=== PATIENT | male | born 1970 | race Caucasian/White ===

== ENCOUNTER 2020-03-26 09:05 | Emergency (ER) | payer SELFPAY ==
[2020-03-26] MEDS ORDERED: Ibuprofen 800 MG TAB ONE (09:35)
== END 2020-03-26 09:58 | disposition home or self-care (01) ==
LOC: ERS 09:05
DX: K04.7 Periapical abscess without sinus (principal); F17.210 Nicotine dependence, cigarettes, uncomplicated
CPT/HCPCS: 99283

== ENCOUNTER 2020-10-21 16:36 | Inpatient (IN) | payer SELFPAY ==
[2020-10-21] MEDS ORDERED: Morphine 4 MG/ML VIAL ONE (18:41)
[2020-10-21] MEDS ORDERED: Ondansetron PF 4 MG/2 ML Vial ONE ×2 (18:41→21:13)
[2020-10-21 19:07] LABS: #Basophils 0.1 thou/uL (0.0-0.2); #Eosinphils 0.3 thou/uL (0.0-0.7); #Lymphocytes 1.9 thou/uL (1.20-3.40); #Monocytes 0.8 thou/uL (0.11-0.59); #Neutrophils 10.1 thou/uL (1.40-6.50); %Basophils 0.7 % (0.0-1.0); %Eosinophils 2.1 % (0.0-10.0); %Lymphocytes 14.5 % (21.0-51.0); %Monocytes 6.2 % (0.0-10.0); %Neutrophils 76.6 % (42.0-75.0); Mean Corpuscular Hemoglobin 32.9 pg (27.0-31.0); Mean Platelet Volume 7.5 fL (7.4-10.4); Platelet Count 241 thou/uL (130-400); RBC Distribution Width 12.9 % (11.5-14.5); Red Blood Cell (RBC) Count 4.56 mill/uL (4.70-6.10); White Blood Cell (WBC) Count 13.2 thou/uL (4.8-10.8)
[2020-10-21 19:30] LABS: ALT (SGPT) 22 U/L (8-55); AST (SGOT) 19 U/L (5-34); Albumin 4.6 g/dL (3.5-5.0); Alkaline Phosphatase 91 U/L (40-110); Anion Gap 13 mmol/L (10-20); BUN (Urea Nitrogen) 14 mg/dL (8.4-25.7); Bilirubin, Total 0.3 mg/dL (0.2-1.2); Calc. Creatinine Clearance 0 mL/min (70-130); Calcium 9.3 mg/dL (7.8-10.44); Carbon Dioxide 27 mmol/L (22-29); Chloride 101 mmol/L (98-107); Globulin 3.3 g/dL (2.4-3.5); Glucose 99 mg/dL (70-105); Potassium 4.5 mmol/L (3.5-5.1); Protein, Total 7.9 g/dL (6.0-8.3); Sodium 136 mmol/L (136-145)
[2020-10-21] MEDS ORDERED: VANCOMYCIN 1.25 GM/250 ML BAG 1.25 GM in Premix Bag 1 BAG IVPB SCH (20:15)
[2020-10-21] MEDS ORDERED: Neomycin-Polymyxin 1 ML AMP ONE (20:28)
[2020-10-21] MEDS ORDERED: Bupivacaine PF 0.5% 30 ML VIAL ONE (20:28)
[2020-10-21] MEDS ORDERED: Bacitracin Zinc Ointment 30 gm TUBE ONE (20:28)
[2020-10-21] MEDS ORDERED: Bisacodyl 10 MG SUPP PR PRN (20:38)
[2020-10-21] MEDS ORDERED: Milk Of Magnesia 30 ML UDCUP PO PRN (20:38)
[2020-10-21] MEDS ORDERED: Morphine 4 MG/ML VIAL SLOW IVP PRN (20:38)
[2020-10-21] MEDS ORDERED: Ketorolac Tromethamine 30 MG/ML VIAL IVP PRN (20:43)
[2020-10-21] MEDS ORDERED: Midazolam HCl 2 mg/2 ml Vial ONE (20:43)
[2020-10-21] MEDS ORDERED: Fentanyl 100 MCG/2 ML VIAL ONE (20:43)
[2020-10-21] MEDS ORDERED: Meperidine HCl/PF 25 MG/ML VIAL IM PRN (20:43)
[2020-10-21] MEDS ORDERED: Communication Order-Pharmacy FS PRN (20:45)
[2020-10-21] MEDS ORDERED: TETANUS AND DIPHTHERIA TOX/PF 0.5 ML DISP.SYRIN IM SCH (20:45)
[2020-10-21] MEDS ORDERED: PROPOFOL 200 MG/20 ML VIAL ONE (21:13)
[2020-10-21] MEDS ORDERED: Lidocaine 1% PF 5 ML VIAL ONE (21:13)
[2020-10-21] MEDS ORDERED: Dexamethasone 20 MG/5 ML VIAL ONE (21:13)
[2020-10-21] MEDS ORDERED: Ketorolac Tromethamine 30 MG/ML VIAL ONE (22:48)
[2020-10-21] MEDS ORDERED: Ondansetron HCl/PF 4 MG/2 ML Vial IVP PRN (22:57)
[2020-10-21] MEDS ORDERED: Promethazine HCl 25 MG/ML VIAL IVPB PRN (22:57)
[2020-10-21] MEDS ORDERED: Promethazine HCl 25 MG/ML VIAL IM PRN (22:57)
[2020-10-21] MEDS: Sodium Chloride 0.9% 100 ML IV SCH (23:40)
[2020-10-22] MEDS: Sodium Chloride 0.9% 100 ML IV SCH ×5 (00:44→02:55)
[2020-10-22] MEDS: Aspirin 81 mg Enteric Coated Tablet PO SCH ×3 (00:45→22:19)
[2020-10-22 01:00] VITALS: BMI 25.4
[2020-10-22] MEDS: Sodium Chloride 0.9% 1,000 ML IV SCH ×2 (03:07→14:01)
[2020-10-22 06:04] LABS: #Monocytes 0.2 thou/uL (0.11-0.59); #Neutrophils 9.9 thou/uL (1.40-6.50); %Basophils 0.2 % (0.0-1.0); %Eosinophils 0.1 % (0.0-10.0); %Monocytes 2.1 % (0.0-10.0); %Neutrophils 88.6 % (42.0-75.0); Hemoglobin 13.1 g/dL (14.0-18.0); Mean Corpuscular HGB CONC 32.7 g/dL (32.0-36.0); Mean Corpuscular Hemoglobin 31.7 pg (27.0-31.0); Mean Corpuscular Volume 96.9 fL (78.0-98.0); Mean Platelet Volume 7.5 fL (7.4-10.4); Platelet Count 211 thou/uL (130-400); RBC Distribution Width 12.9 % (11.5-14.5); Red Blood Cell (RBC) Count 4.13 mill/uL (4.70-6.10); White Blood Cell (WBC) Count 11.1 thou/uL (4.8-10.8)
[2020-10-22] MEDS: Vancomycin 1.25 GM in Premix Bag 1 BAG IVPB SCH ×3 (09:12→22:43)
[2020-10-22] MEDS: HYDROcodone/Acetaminophen 5/325 mg Tablet PO PRN (18:21)
[2020-10-23] MEDS: Sodium Chloride 0.9% 1,000 ML IV SCH ×3 (02:44→22:32)
[2020-10-23] MEDS: HYDROcodone/Acetaminophen 5/325 mg Tablet PO PRN ×4 (06:41→22:41)
[2020-10-23] MEDS: Aspirin 81 mg Enteric Coated Tablet PO SCH ×2 (08:08→20:18)
[2020-10-23 09:01] LABS: Vancomycin, Trough 13.4 ug/mL
[2020-10-23] MEDS: Vancomycin 1.25 GM in Premix Bag 1 BAG IVPB SCH (13:10)
[2020-10-23] MEDS ORDERED: Ketorolac Tromethamine 30 MG/ML VIAL IM/IV SCH (20:45)
[2020-10-24] MEDS: Vancomycin 1.25 GM in Premix Bag 1 BAG IVPB SCH ×2 (00:36→11:25)
[2020-10-24] MEDS: Ketorolac Tromethamine 30 MG/ML VIAL IVP SCH ×2 (03:31→09:34)
[2020-10-24] MEDS: Sodium Chloride 0.9% 1,000 ML IV SCH (07:21)
[2020-10-24] MEDS: HYDROcodone/Acetaminophen 5/325 mg Tablet PO PRN (07:22)
[2020-10-24] MEDS: Aspirin 81 mg Enteric Coated Tablet PO SCH (09:33)
[2020-10-24 12:07] VITALS: BP 133/72; TEMP 98
== END 2020-10-24 12:20 | disposition home or self-care (01) | DRG 580 ==
LOC: ERS 16:36 → SDC/OP 21:12 → SURG A 23:00
PROVIDERS: ADMIT Orthopaedic Surgery Hand Surgery; ATTEND Orthopaedic Surgery Hand Surgery
PROC: 0JBK0ZZ Excision of Left Hand Subcutaneous Tissue and Fascia, Open Approach (ICD-10-PCS; principal; 2020-10-21)
DX: S61.235A Puncture wound without foreign body of left ring finger without damage to nail, initial encounter (principal); L02.512 Cutaneous abscess of left hand; F17.210 Nicotine dependence, cigarettes, uncomplicated; L03.012 Cellulitis of left finger; T75.89XA Other specified effects of external causes, initial encounter
CPT/HCPCS: 36415; 80053; 80202; 83605; 84550; 85025; 85652; 87070; 87077; 87186; 87205; 96365; 96375; J1100; J1885; J1956; J2250; J2270; J2405; J2704; J3010; J3370; S0020